=== PATIENT | female | born 1980 | race Caucasian/White ===

== ENCOUNTER 2017-03-18 09:48 | Emergency (ER) | payer MEDICAID ==
[~2017-03-18] VITALS: Ht 160 cm; Wt 56.3 kg
[~2017-03-18 09:48] MED LIST: GABA300C10 PO
[2017-03-18 09:50] VITALS: BP 146/96
[2017-03-18 10:41] LABS: HEMATOCRIT 41.1 % (34.6-47.8); HEMOGLOBIN 13.7 g/dL (11.7-16.4)
[2017-03-18 10:47] LABS: DAU SCREEN DISCLAIMER
[2017-03-18 10:54] LABS: ASPARTATE AMINO TRANSFERASE 30 U/L (15-37); BLOOD UREA NITROGEN 19 mg/dL (7-18)
== END 2017-03-18 11:23 | disposition left against medical advice (07) ==
LOC: ED 10:25
DX: F15.280 Other stimulant dependence with stimulant-induced anxiety disorder (principal); F15.24 Other stimulant dependence with stimulant-induced mood disorder
CPT/HCPCS: 36415; 80053; 80307; 81003; 84703; 85025; 99284; G0479

== ENCOUNTER 2017-04-25 13:47 | Emergency (ER) | payer MEDICAID ==
[~2017-04-25] VITALS: Ht 160 cm; Wt 58.8 kg
[2017-04-25] MEDS ORDERED: KETOROLAC 30 MG/1 ML IM ONE (14:30)
[2017-04-25] MEDS ORDERED: KETOROLAC 30 MG/1 ML ONE (14:50)
[2017-04-25 15:42] VITALS: BP 125/78
== END 2017-04-25 15:44 | disposition home or self-care (01) ==
LOC: ED 15:31
DX: S39.012A Strain of muscle, fascia and tendon of lower back, initial encounter (principal); G89.29 Other chronic pain; M25.562 Pain in left knee; X58.XXXA Exposure to other specified factors, initial encounter; Y93.01 Activity, walking, marching and hiking; Y92.89 Other specified places as the place of occurrence of the external cause; Y99.8 Other external cause status
CPT/HCPCS: 29505; 72110; 73564; 96372; 99284; J1885

== ENCOUNTER 2017-09-18 13:54 | Emergency (ER) | payer MEDICAID ==
[~2017-09-18] VITALS: Ht 160 cm; Wt 60.2 kg
[2017-09-18 13:59] VITALS: BP 111/69
[2017-09-18] MEDS ORDERED: CYCLOBENZAPRINE 10 MG TABLET PO PRN (15:00)
[2017-09-18] MEDS ORDERED: KETOROLAC 30 MG/1 ML IM ONE (15:00)
[2017-09-18] MEDS ORDERED: KETOROLAC 30 MG/1 ML ONE ×2 (15:02→15:45)
[2017-09-18] MEDS ORDERED: MORPHINE SULFATE 4 MG/ML, 1ML ONE (15:03)
[2017-09-18] MEDS ORDERED: ONDANSETRON ODT 8 MG ONE (15:03)
[2017-09-18 15:13] LABS: MICROSCOPIC NOT IND
[2017-09-18 15:15] LABS: CULTURE INDICATED? NO
[2017-09-18] MEDS ORDERED: CYCLOBENZAPRINE 10 MG TABLET ONE ×2 (15:21→15:45)
== END 2017-09-18 15:56 | disposition home or self-care (01) ==
LOC: ED 15:50
DX: S39.012A Strain of muscle, fascia and tendon of lower back, initial encounter (principal); X58.XXXA Exposure to other specified factors, initial encounter; Y93.89 Activity, other specified; Y99.8 Other external cause status; Y92.89 Other specified places as the place of occurrence of the external cause
CPT/HCPCS: 71046; 81003; 96372; 99285; J1885

== ENCOUNTER 2018-03-14 19:14 | Emergency (ER) | payer MEDICAID ==
[~2018-03-14] VITALS: Ht 160 cm; Wt 57.7 kg
[2018-03-14 19:26] VITALS: BP 157/97
[2018-03-14 19:55] LABS: BASOPHILS # (AUTO) 0.03 x10^3/uL (0-0.1); BASOPHILS % (AUTO) 0 % (0-1); EOSINOPHILS % (AUTO) 0 % (1-7); LYMPHOCYTES # (AUTO) 2.24 x10^3/uL (1-3.4); LYMPHOCYTES % (AUTO) 22 % (22-44); MD NO; MEAN CORPUSCULAR HEMOGLOBIN 27.1 pg (27.0-34.8); MEAN CORPUSCULAR HGB CONC 32.6 g/dL (32.4-35.8); MEAN CORPUSCULAR VOLUME 83.1 fL (80-100); MEAN PLATELET VOLUME 7.9 fL (7.4-10.4); MONOCYTES % (AUTO) 7 % (2-9); NEUTROPHILS # (AUTO) 7.21 x10^3/uL (1.8-6.8); NEUTROPHILS % (AUTO) 71 % (42-75); PLATELET COUNT 442 x10^3/uL (130-400); RED BLOOD COUNT 5.01 x10^6/uL (3.82-5.3); RED CELL DISTRIBUTION WIDTH 14.1 % (9.6-15.2)
[2018-03-14 19:59] LABS: ALANINE AMINOTRANSFERASE 31 U/L (12-78); ALBUMIN 3.4 g/dL (3.4-5.0); ANION GAP 7 mmol/L (5-15); CALCIUM 8.7 mg/dL (8.5-10.1); CHLORIDE 106 mmol/L (98-107); CREATININE 0.69 mg/dL (0.55-1.02)
[2018-03-14 20:03] LABS: ALKALINE PHOSPHATASE 115 U/L (45-117); BILIRUBIN,TOTAL 0.2 mg/dL (0.2-1.0); TOTAL PROTEIN 8.1 g/dL (6.4-8.2)
[2018-03-14 20:18] LABS: CULTURE INDICATED? YES; MICROSCOPIC INDICATED
== END 2018-03-14 20:37 | disposition left against medical advice (07) ==
LOC: ED 20:25
DX: R10.84 Generalized abdominal pain (principal); F43.10 Post-traumatic stress disorder, unspecified; F90.9 Attention-deficit hyperactivity disorder, unspecified type; F15.10 Other stimulant abuse, uncomplicated; Z87.42 Personal history of other diseases of the female genital tract; Z87.440 Personal history of urinary (tract) infections
CPT/HCPCS: 36415; 80053; 81001; 84703; 85025; 87086; 93005; 99284

== ENCOUNTER 2018-05-01 02:11 | Emergency (ER) | payer MEDICAID ==
[~2018-05-01] VITALS: Ht 160 cm; Wt 61.0 kg
[2018-05-01 02:16] VITALS: BP 122/82
[2018-05-01] MEDS ORDERED: CEPHALEXIN 500 MG CAPSULE ONE (02:47)
[2018-05-01] MEDS ORDERED: SULFAMETH./TRIMETHOPRIM DS 800MG/160MG TABLET ONE (02:47)
[2018-05-01] MEDS ORDERED: HYDROcodone/APAP 5/325 TABLET ONE (02:48)
[2018-05-01] MEDS ORDERED: IBUPROFEN 600 MG TABLET ONE (02:48)
--- NOTE | 2018-05-01 02:54 | NUR ---
LAB AT BEDSIDE. PT MEDICATED PER EMAR. 5 RIGHTS ADDRESSED. PT PROVIDED WITH CRACKERS AND MILK.
[2018-05-01] MEDS ORDERED: CEPHALEXIN 500 MG CAPSULE PO ONE (03:00)
[2018-05-01] MEDS ORDERED: HYDROcodone/APAP 5/325 TABLET PO ONE (03:00)
[2018-05-01] MEDS ORDERED: SULFAMETH./TRIMETHOPRIM DS 800MG/160MG TABLET PO ONE (03:00)
[2018-05-01] MEDS ORDERED: IBUPROFEN 200 MG TABLET PO ONE (03:00)
[2018-05-01 03:10] LABS: BASOPHILS # (AUTO) 0.08 x10^3/uL (0-0.1); BASOPHILS % (AUTO) 1 % (0-1); EOSINOPHILS # (AUTO) 0.15 x10^3/uL (0-0.4); EOSINOPHILS % (AUTO) 2 % (1-7); LYMPHOCYTES # (AUTO) 2.04 x10^3/uL (1-3.4); LYMPHOCYTES % (AUTO) 31 % (22-44); MD NO; MEAN CORPUSCULAR HEMOGLOBIN 25.9 pg (27.0-34.8); MEAN CORPUSCULAR HGB CONC 32.3 g/dL (32.4-35.8); MEAN CORPUSCULAR VOLUME 80.3 fL (80-100); MONOCYTES # (AUTO) 0.48 x10^3/uL (0.2-0.8); MONOCYTES % (AUTO) 7 % (2-9); NEUTROPHILS # (AUTO) 3.95 x10^3/uL (1.8-6.8); NEUTROPHILS % (AUTO) 59 % (42-75); PLATELET COUNT 423 x10^3/uL (130-400); RED BLOOD COUNT 4.33 x10^6/uL (3.82-5.3); RED CELL DISTRIBUTION WIDTH 15.5 % (9.6-15.2)
[2018-05-01 03:20] LABS: ALANINE AMINOTRANSFERASE 18 U/L (12-78); ALBUMIN 3.3 g/dL (3.4-5.0); ANION GAP 7 mmol/L (5-15); CALCIUM 8.3 mg/dL (8.5-10.1); CHLORIDE 107 mmol/L (98-107); CREATININE 0.68 mg/dL (0.55-1.02)
[2018-05-01 03:23] LABS: ALKALINE PHOSPHATASE 93 U/L (45-117); BILIRUBIN,TOTAL 0.2 mg/dL (0.2-1.0)
--- NOTE | 2018-05-01 03:40 | NUR ---
AWAITING LABS, PT RESTING ON JULIOCESAR IN NAD. WILL CONTINUE TO MONITOR.
[2018-05-01 04:08] LABS: HCT (SEDRATE) 34.7 % (34.6-47.8)
--- NOTE | 2018-05-01 04:26 | NUR ---
Patient/Caregiver given discharge instructions and they have confirmed that they understand the instructions. Patient ambulatory with steady gait.
--- NOTE | 2018-05-01 04:26 | NUR ---
BUS PASS PROVIDED TO PT
== END 2018-05-01 04:28 | disposition home or self-care (01) ==
LOC: ED 02:29
DX: L03.116 Cellulitis of left lower limb (principal)
CPT/HCPCS: 36415; 80053; 83605; 84145; 85025; 85651; 87040; 99284

== ENCOUNTER 2018-05-01 19:55 | Emergency (ER) | payer MEDICAID ==
[~2018-05-01] VITALS: Ht 160 cm; Wt 61.8 kg
[2018-05-01 20:01] VITALS: BP 115/74
[2018-05-01] MEDS ORDERED: KETOROLAC 30 MG/1 ML ONE (20:34)
[2018-05-01] MEDS ORDERED: HYDROcodone/APAP 5/325 TABLET ONE (20:34)
[2018-05-01] MEDS ORDERED: HYDROcodone/APAP 5/325 TABLET PO ONE (21:00)
[2018-05-01] MEDS ORDERED: KETOROLAC 30 MG/1 ML IM ONE (21:00)
[2018-05-01] MEDS ORDERED: OXYcodone/APAP 5/325MG TABLET ONE (21:45)
--- NOTE | 2018-05-01 21:49 | NUR ---
PT VERY RUDE TOWARD MD LOCKETT WHEN MD LOCKETT ATTEMTPTING TO PERFORM EXAM ON PTS LEG. MD WAS SHOWING PT HOW BOTH LEGS WERE RED AND SIMILAR IN LOCATIONS. PT THEN SAID "EXCUSE ME I WOULD LIKE SOME PRIVACY" WHEN MD ONLY UNCOVERED HER RIGHT LEG. PT WAS NEVER EXPOSED OTHER THAN REMOVING THE BLANKET FROM HER RIGHT LEG TO COMPARE TO LEFT WITH EXAM. PT VERBALIZED "I DONT HAVE ANY UNDERWARE ON SO BE CAREFUL" THIS RN AND MD PÉREZ EXPLAINED TO PT WE ONLY UNCOVERED THE LOWER PART OF HER LEG TO SHOW HER AND COMPARE THE REDNESS. PT VERY FRUSTRATED WITH STAFF AND NOT HAVING PAIN RELEIF DESPITE GETTING RX PRESCRIPTION FOR OPIODS AND BEING TREATED EARLIER TODAY FOR SAME SYMPTOMS. PIER WORKER INFORMED OF SITUATION AND PTS STATEMENT.
[2018-05-01] MEDS ORDERED: OXYcodone/APAP 5/325MG TABLET PO ONE (22:00)
--- NOTE | 2018-05-01 22:17 | NUR ---
Patient/Caregiver given discharge instructions and they have confirmed that they understand the instructions. Patient ambulatory with steady gait.
--- NOTE | 2018-05-01 22:17 | NUR ---
PT GIVEN GRAHMCRACKERS AND CRANBERRY JUICE SNACK TO TOLERATE PO MEDS.
--- NOTE | 2018-05-01 22:28 | NUR ---
PT REFUSED TO GO TO [facility].
== END 2018-05-01 22:27 | disposition home or self-care (01) ==
LOC: ED 21:31
DX: L03.116 Cellulitis of left lower limb (principal); Z72.9 Problem related to lifestyle, unspecified
CPT/HCPCS: 93970; 96372; 99284; J1885

== ENCOUNTER 2018-05-02 17:59 | Emergency (ER) | payer MEDICAID ==
[~2018-05-02] VITALS: Ht 160 cm; Wt 62.2 kg
[2018-05-02 18:22] VITALS: BP 109/70
--- NOTE | 2018-05-02 19:20 | NUR ---
pt ambulated to room with a steady gait. pt walking in [place] to find rn and ask for a blanket. rn gave pt blanket. pa at bedside
--- NOTE | 2018-05-02 19:41 | NUR ---
PT LEFT DISCHARGE PAPERS IN ROOM AND WALKED OUT OF ER WITH A STEADY GAIT
== END 2018-05-02 19:44 | disposition home or self-care (01) ==
LOC: ED 19:24
DX: M25.572 Pain in left ankle and joints of left foot (principal); M79.89 Other specified soft tissue disorders
CPT/HCPCS: 99282

== ENCOUNTER 2018-06-03 11:07 | Emergency (ER) | payer MEDICAID ==
--- NOTE | 2018-06-03 12:25 | NUR ---
NO ANSWER IN [id number] AVZA [phone]
== END 2018-06-03 12:26 ==
LOC: ED 12:20
DX: R68.89 Other general symptoms and signs (principal); Z53.21 Procedure and treatment not carried out due to patient leaving prior to being seen by health care provider

== ENCOUNTER 2018-07-28 23:31 | Emergency (ER) | payer MEDICAID ==
[~2018-07-28] VITALS: Ht 160 cm; Wt 62.0 kg
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
[2018-07-29] MEDS ORDERED: ONDANSETRON ODT 4 MG ONE (00:53)
[2018-07-29] MEDS ORDERED: DIAZEPAM 5 MG TABLET ONE (00:53)
[2018-07-29 00:59] VITALS: BP 122/74
[2018-07-29] MEDS ORDERED: DIAZEPAM 5 MG TABLET PO ONE (01:00)
[2018-07-29] MEDS ORDERED: ONDANSETRON ODT 4 MG PO ONE (01:00)
== END 2018-07-29 01:02 | disposition home or self-care (01) ==
LOC: ED 23:49
DX: S10.96XA Insect bite of unspecified part of neck, initial encounter (principal); R05 Cough; F17.210 Nicotine dependence, cigarettes, uncomplicated; Z72.9 Problem related to lifestyle, unspecified; W57.XXXA Bitten or stung by nonvenomous insect and other nonvenomous arthropods, initial encounter; Y93.89 Activity, other specified; Y92.89 Other specified places as the place of occurrence of the external cause; Y99.8 Other external cause status
CPT/HCPCS: 71046; 99283; 99406; Q0162

== ENCOUNTER 2018-10-27 17:23 | Emergency (ER) | payer MEDICAID ==
[~2018-10-27] VITALS: Ht 160 cm; Wt 61.8 kg
[2018-10-27 17:26] VITALS: BP 121/78
[2018-10-27] MEDS ORDERED: KETOROLAC 30 MG/1 ML ONE (17:51)
[2018-10-27] MEDS ORDERED: DIAZEPAM 5 MG TABLET ONE (17:51)
[2018-10-27] MEDS ORDERED: KETOROLAC 30 MG/1 ML IM ONE (18:00)
[2018-10-27] MEDS ORDERED: DIAZEPAM 5 MG TABLET PO ONE (18:00)
== END 2018-10-27 18:20 | disposition home or self-care (01) ==
LOC: ED 18:14
DX: G89.29 Other chronic pain (principal); M54.5 Low back pain; F15.10 Other stimulant abuse, uncomplicated; F90.9 Attention-deficit hyperactivity disorder, unspecified type; Z72.9 Problem related to lifestyle, unspecified; F17.200 Nicotine dependence, unspecified, uncomplicated
CPT/HCPCS: 96372; 99283; J1885

== ENCOUNTER 2018-10-30 19:36 | Emergency (ER) | payer MEDICAID ==
[~2018-10-30] VITALS: Ht 160 cm; Wt 64.0 kg
[2018-10-30 19:42] VITALS: BP 112/75
== END 2018-10-30 21:00 | disposition home or self-care (01) ==
LOC: ED 20:43
DX: S39.012A Strain of muscle, fascia and tendon of lower back, initial encounter (principal); F90.9 Attention-deficit hyperactivity disorder, unspecified type; Z72.9 Problem related to lifestyle, unspecified; Z79.899 Other long term (current) drug therapy; X58.XXXA Exposure to other specified factors, initial encounter; Y93.89 Activity, other specified; Y92.89 Other specified places as the place of occurrence of the external cause; Y99.8 Other external cause status
CPT/HCPCS: 96372; 99283; J1885

== ENCOUNTER 2018-11-02 08:16 | Emergency (ER) | payer MEDICAID ==
[~2018-11-02] VITALS: Ht 160 cm; Wt 65.3 kg
[2018-11-02 08:17] VITALS: BP 116/77
== END 2018-11-02 09:08 | disposition home or self-care (01) ==
LOC: ED 08:49
DX: S39.012A Strain of muscle, fascia and tendon of lower back, initial encounter (principal); X58.XXXA Exposure to other specified factors, initial encounter; Y93.89 Activity, other specified; Y92.89 Other specified places as the place of occurrence of the external cause; Y99.8 Other external cause status
CPT/HCPCS: 96372; 99283; J1885

== ENCOUNTER 2018-11-18 17:57 | Emergency (ER) | payer MEDICAID ==
[~2018-11-18] VITALS: Ht 160 cm; Wt 65.0 kg
[2018-11-18 18:19] VITALS: BP 141/70
== END 2018-11-18 19:29 | disposition left against medical advice (07) ==
LOC: ED 19:23
DX: S09.90XA Unspecified injury of head, initial encounter (principal); H11.32 Conjunctival hemorrhage, left eye; Y04.8XXA Assault by other bodily force, initial encounter; Y92.410 Unspecified street and highway as the place of occurrence of the external cause; Y99.8 Other external cause status; Y93.89 Activity, other specified
CPT/HCPCS: 99281

== ENCOUNTER 2019-01-30 19:19 | Emergency (ER) | payer MEDICAID ==
[~2019-01-30] VITALS: Ht 160 cm; Wt 60.9 kg
[~2019-01-30 19:19] MED LIST changes: +ACYC-114 PO; +FERR324T5 PO; +PRED20TA PO
[2019-01-30 19:28] VITALS: BP 132/89
[2019-01-30] MEDS ORDERED: KETOROLAC 30 MG/1 ML ONE (19:39)
[2019-01-30] MEDS ORDERED: KETOROLAC 30 MG/1 ML IM ONE (20:00)
== END 2019-01-30 19:55 | disposition home or self-care (01) ==
LOC: ED 19:30
DX: G89.29 Other chronic pain (principal); M54.5 Low back pain
CPT/HCPCS: 96372; 99283; J1885

== ENCOUNTER 2019-02-23 08:22 | Emergency (ER) | payer MEDICAID ==
[~2019-02-23] VITALS: Ht 160 cm; Wt 61.0 kg
[2019-02-23 08:25] VITALS: BP 117/78
[2019-02-23] MEDS ORDERED: KETOROLAC 30 MG/1 ML IM ONE (09:30)
[2019-02-23] MEDS ORDERED: KETOROLAC 60 MG/2 ML ONE (09:41)
== END 2019-02-23 09:49 | disposition home or self-care (01) ==
LOC: ED 08:35
DX: M54.5 Low back pain (principal); G89.29 Other chronic pain; F17.200 Nicotine dependence, unspecified, uncomplicated
CPT/HCPCS: 96372; 99283; J1885

== ENCOUNTER 2019-02-26 02:50 | Emergency (ER) | payer MEDICAID ==
[~2019-02-26] VITALS: Ht 160 cm; Wt 63.7 kg
[2019-02-26 02:52] VITALS: BP 126/81
[2019-02-26] MEDS ORDERED: NAPR250T6 PO (03:19)
--- NOTE | 2019-02-26 03:20 | NUR ---
PT PRESENTED WITH C/O LOWER BACK PAIN, INTERMITTENT. "I JUST WANT TO GET A SHOT OF TORODOL". PT SITTING UP ON GURNEY, CALL LIGHT WITHIN REACH. ERP AT BEDSIDE FOR EVAL
[2019-02-26] MEDS ORDERED: KETOROLAC 60 MG/2 ML ONE (03:29)
[2019-02-26] MEDS ORDERED: KETOROLAC 60 MG/2 ML IM ONE (03:30)
--- NOTE | 2019-02-26 03:30 | NUR ---
PT MEDICATED PER MAR
== END 2019-02-26 03:41 | disposition home or self-care (01) ==
LOC: ED 03:30
DX: M54.5 Low back pain (principal); F90.9 Attention-deficit hyperactivity disorder, unspecified type; F43.10 Post-traumatic stress disorder, unspecified; F17.200 Nicotine dependence, unspecified, uncomplicated; Z72.9 Problem related to lifestyle, unspecified
CPT/HCPCS: 96372; 99283; J1885

== ENCOUNTER 2019-03-16 03:59 | Emergency (ER) | payer MEDICAID ==
[~2019-03-16 03:59] MED LIST changes: +NAPR250T6 PO
--- NOTE | 2019-03-16 04:08 | NUR ---
Pt declines triage. States she just wants to ask a question. States she had a single episode of blood clot in L nostril. No further bleeding after that. No bleeding at this time. No other symptoms. Pt states she is concerned it was an aneursym in her brain. Discussed bloody noses are common with weather changes. Denies REYES, blurred vision, or any neuro symptoms. No blood thinners. Discussed that pt could be evaluated further by a MD--pt does not want to be triaged and does not want to see a MD at this time. Discussed that pt should return immediately with any new/returning symptoms. Pt verbalizes understanding. Again, encouraged to have further eval if she is concerned--pt declines and left prior to complete triage.
== END 2019-03-16 04:15 | disposition left against medical advice (07) ==
LOC: ED 04:09
DX: Z53.21 Procedure and treatment not carried out due to patient leaving prior to being seen by health care provider (principal)

== ENCOUNTER 2019-03-16 04:50 | Emergency (ER) | payer MEDICAID ==
[~2019-03-16] VITALS: Ht 160 cm; Wt 62.4 kg
--- NOTE | 2019-03-16 05:06 | NUR ---
assessment made. chart up for MD to see.
--- NOTE | 2019-03-16 05:07 | NUR ---
ERP at bedside.
[2019-03-16] MEDS ORDERED: OXYMETAZOLINE NASAL SPRAY 0.05%,30ML ONE (05:20)
[2019-03-16 05:26] VITALS: BP 132/83
--- NOTE | 2019-03-16 05:26 | NUR ---
afrin given to patient per ERP order.
[2019-03-16] MEDS ORDERED: OXYMETAZOLINE NASAL SPRAY 0.05%, 15ML NAS ONE (05:30)
--- NOTE | 2019-03-16 05:30 | NUR ---
patient discharged with instruction. verbalized understanding.
== END 2019-03-16 05:35 | disposition home or self-care (01) ==
LOC: ED 05:32
DX: R04.0 Epistaxis (principal); F17.210 Nicotine dependence, cigarettes, uncomplicated
CPT/HCPCS: 99282

== ENCOUNTER 2019-03-21 21:39 | Emergency (ER) | payer MEDICAID ==
[~2019-03-21] VITALS: Ht 160 cm; Wt 60.5 kg
[2019-03-21 21:41] VITALS: BP 132/81
== END 2019-03-21 23:08 | disposition home or self-care (01) ==
LOC: ED 22:32
DX: F15.10 Other stimulant abuse, uncomplicated (principal); F17.200 Nicotine dependence, unspecified, uncomplicated
CPT/HCPCS: 99281

== ENCOUNTER 2019-07-29 15:20 | Emergency (ER) | payer MEDICAID ==
[~2019-07-29] VITALS: Ht 160 cm; Wt 53.4 kg
[2019-07-29 15:23] VITALS: BP 147/84
--- NOTE | 2019-07-29 17:00 | NUR ---
NO ANSWER X1
--- NOTE | 2019-07-29 18:00 | NUR ---
nO ANSWER X2
--- NOTE | 2019-07-29 18:33 | NUR ---
NO ANSWER X3. PT HAS LEFT LOBBY.
== END 2019-07-29 18:35 | disposition left against medical advice (07) ==
LOC: ED 18:25
DX: M54.5 Low back pain (principal); Z53.21 Procedure and treatment not carried out due to patient leaving prior to being seen by health care provider

== ENCOUNTER 2020-08-13 07:43 | Emergency (ER) | payer MEDICAID ==
[~2020-08-13] VITALS: Ht 160 cm; Wt 66.6 kg
[~2020-08-13 07:43] MED LIST changes: -ACYC-114 PO; +ACYC-40 PO; +NAPR-872 PO; -NAPR250T6 PO
[2020-08-13 07:46] VITALS: BP 147/99
--- NOTE | 2020-08-13 08:11 | NUR ---
MD AT BEDSIDE EXAMINING PT
--- NOTE | 2020-08-13 08:24 | NUR ---
PT NO LONGER IN ROOM, LEFT WITHOUT DISCHARGE PAPERS
== END 2020-08-13 08:27 | disposition home or self-care (01) ==
LOC: ED 08:21
DX: H53.131 Sudden visual loss, right eye (principal); H53.121 Transient visual loss, right eye
CPT/HCPCS: 99282

== ENCOUNTER 2020-12-07 10:20 | Emergency (ER) | payer MEDICAID ==
--- NOTE | 2020-12-07 10:33 | NUR ---
DIKE SUPERVISOR: MACHELLE X1 @[phone]
--- NOTE | 2020-12-07 10:42 | NUR ---
LATENT FINGERPRINT EXAMINER: MACHELLE X2 @[phone]
--- NOTE | 2020-12-07 11:00 | NUR ---
POULTRY DRESSING WORKER: NIL X3 [phone]
== END 2020-12-07 11:18 | disposition left against medical advice (07) ==
LOC: ED 10:40
DX: M79.671 Pain in right foot (principal); Z53.21 Procedure and treatment not carried out due to patient leaving prior to being seen by health care provider

== ENCOUNTER 2020-12-07 13:03 | Emergency (ER) | payer MEDICAID ==
--- NOTE | 2020-12-07 15:00 | NUR ---
MECHATRONICS ENGINEER: NIL X1
--- NOTE | 2020-12-07 15:17 | NUR ---
PROJECT CONSTRUCTION MANAGER: NIL X2.
--- NOTE | 2020-12-07 15:40 | NUR ---
DESIGNATED BROKER: NIL X3
== END 2020-12-07 16:16 | disposition home or self-care (01) ==
LOC: ED 16:10
DX: M79.671 Pain in right foot (principal); Z53.21 Procedure and treatment not carried out due to patient leaving prior to being seen by health care provider